=== PATIENT | male | born 1945 | race Caucasian/White ===

== ENCOUNTER 2017-03-22 10:06 | Emergency (ER) | payer MEDICARE ==
[~2017-03-22] VITALS: Ht 177.8 cm; Wt 69.1 kg
[~2017-03-22 10:06] MED LIST: ACET-784 PO; FURO40 PO; GABA-529 PO; GABA-531 PO; HYDR1LIQ5 PO; MOM30 PO; MULT-68 PO; OXYC10 PO; PERCT10 PO; [UNRECOGNIZED DRUG - CODE] PO
[2017-03-22] MEDS ORDERED: PRED10TA3 PO (10:26)
[2017-03-22] MEDS ORDERED: ASPI-1061 PO (10:26)
[2017-03-22] MEDS ORDERED: LISI40TA4 PO (10:26)
[2017-03-22] MEDS ORDERED: ALBU8HFA4 IH (10:26)
[2017-03-22] MEDS ORDERED: CARV25TA32 PO (10:26)
[2017-03-22] MEDS ORDERED: ESCI5SOL2 PO (10:26)
[2017-03-22] MEDS ORDERED: SODIUM CHLORIDE 0.9% 1,000 ML IV ONE (10:30)
[2017-03-22] MEDS ORDERED: HYDROCORTISONE SOD SUCC 100 MG/2 ML VIAL IVP ONE (10:30)
[2017-03-22] MEDS ORDERED: MIDODRINE HCL 5 MG TABLET PO ONE (10:30)
[2017-03-22 11:11] LABS: BASOPHILS % (AUTO) 0.4 % (0.0-2.0); EOSINOPHILS % (AUTO) 1.8 % (1.0-6.0); HEMATOCRIT 35.7 % (41-53); HEMOGLOBIN 12.1 g/dL (13.5-17.5); LYMPHOCYTES # (AUTO) 1.6 K/uL (1.0-4.8); LYMPHOCYTES % (AUTO) 18.6 % (22.0-44.0); MEAN CORPUSCULAR HEMOGLOBIN 31.2 pg (26.0-34.0); MEAN CORPUSCULAR HGB CONC 34.1 G/dL (31.0-37.0); MEAN CORPUSCULAR VOLUME 92 fL (80-100); MONOCYTES # (AUTO) 0.5 K/uL (0.1-1.0); MONOCYTES % (AUTO) 6.1 % (2.0-9.0); NEUTROPHILS # (AUTO) 6.2 K/uL (1.8-7.7); NEUTROPHILS % (AUTO) 73.1 % (40.0-70.0); PLATELET COUNT (AUTO) 214 K/uL (150-450); RED BLOOD CELL COUNT(AUTO) 3.89 MIL/uL (4.50-5.90); RED CELL DISTRIBUTION WIDTH 14.6 % (11.5-14.5); WHITE BLOOD COUNT (AUTO) 8.4 K/uL (4.5-11.0)
[2017-03-22 11:18] LABS: CALCIUM, TOTAL 9.1 mg/dL (8.8-10.5); CREATININE 1.79 mg/dL (0.60-1.30); POTASSIUM 4.2 mmol/L (3.5-5.1)
[2017-03-22 15:01] VITALS: BP 108/61
== END 2017-03-22 15:24 | disposition home or self-care (01) ==
LOC: EMS 10:07
DX: I95.89 Other hypotension (principal); R00.1 Bradycardia, unspecified; J44.9 Chronic obstructive pulmonary disease, unspecified; I10 Essential (primary) hypertension
CPT/HCPCS: 36415; 71010; 80048; 85025; 93005; 96374; 99285; J1720; J7030